=== PATIENT | male | born 1960 | race Caucasian/White ===

== ENCOUNTER 2021-12-16 14:40 | Outpatient (CLI) | payer OTHER, SELFPAY ==
--- NOTE | 2021-12-16 14:45 | MR_ITS ---
[facility] [address] [facility] [address] Phone:?[phone] Fax:?[phone] Referring Physician Information: Cheng Ernst M.D. [address] [facility] [address] [place] [id number] Phone:?[phone] Fax:?[phone] Patient:?Mateusz Bolaños D.O.B:?1960 Sex:?Male Phone:?[phone] [facility] MRN:?[id number] Exam Date:?12/16/2021 ? EXAM: MR LUMBAR SPINE WITHOUT CONTRAST 1.5T CLINICAL INFORMATION: Low back pain radiating into the left foot. History of previous surgery in 2020. TECHNICAL INFORMATION: T1, T2 and STIR sagittal sections through the lumbar spine with T1 coronal sections, T1 and T2 FSE stacked axial sections and T2 FSE angled axial sections through L5-S1. COMPARISON IMAGES: X-rays dated 12/08/2021 and a previous MRI dated 01/30/2020. INTERPRETATION:?Segmentation and Alignment: Lordotic alignment of five lumbar vertebrae with a mild lumbar curve to the left. Sacrum and Sacroiliac joints:?Normal sacrum and sacroiliac joints. L5-S1: Moderate disc degeneration with mild right facet arthropathy, moderate to marked narrowing of the subarticular recesses, and impingement on the S1 component of a conjoined left L5-S1 nerve root. Moderate bilateral foraminal stenosis with mild encroachment on the L5 component of the conjoined nerve root on sagittal image 13. L4-5: Moderate disc degeneration with a laminotomy defect on the left and mild central/subarticular recess stenosis. Mild right and moderate left foraminal stenosis with moderate left facet arthropathy. L3-4: Moderate disc degeneration with moderate bilateral facet arthropathy and moderately severe central/right subarticular recess stenosis. Neural foramina patent. L2-3: Moderate disc degeneration with mild narrowing of the central canal. Normal facet joints and patent neural foramina. L1-2 and T12-L1: Normal intervertebral disc and facet joints. No stenosis or impingement. Conus: Normal signal intensity within the conus medullaris. No intradural mass or arachnoidal adhesions. Osseous structures: Normal signal intensity within the vertebral marrow spaces. No fracture or avulsion. No osteolytic or destructive bone lesion. Paraspinous soft tissues:?No paraspinous soft tissue mass or fluid collection. CONCLUSION: 1. Moderately severe subarticular recess stenosis bilaterally at L5-S1 with impingement on the S1 component of a conjoined left L5-S1 nerve root. 2. Moderately severe central/right subarticular recess stenosis at L3-4. 3. Moderate foraminal stenosis bilaterally at L5-S1 and on the left at L4-5. 4. Facet arthropathy, moderate bilaterally at L3-4 and moderate on the left at L4-5. 5. L5-S1, L4-5, L3-4 and L2-3 disc degeneration. 6. Comparison with 01/19/2022 shows that the patient has undergone a discectomy at L4-5, degenerative changes at each of the remaining levels unchanged in the interval. Electronically signed on 12/17/2021 6:26:00 PM by Garrett Irwin M.D.
== END 2021-12-16 14:41 | disposition home or self-care (01) ==
PROVIDERS: PCP Family Medicine; Visit Provider Specialist
DX: M54.50 Low back pain, unspecified (principal); M51.26 Other intervertebral disc displacement, lumbar region; M48.061 Spinal stenosis, lumbar region without neurogenic claudication; M51.36 Other intervertebral disc degeneration, lumbar region; M51.37 Other intervertebral disc degeneration, lumbosacral region
CPT/HCPCS: 72148

== ENCOUNTER 2022-11-24 08:12 | Outpatient (CLI) | payer OTHER, SELFPAY | END 2022-11-24 08:13 | disposition home or self-care (01) | PROVIDERS: PCP Family Medicine; Visit Provider Family Medicine | DX: I10 Essential (primary) hypertension (principal); E78.5 Hyperlipidemia, unspecified; R53.1 Weakness; Z12.5 Encounter for screening for malignant neoplasm of prostate | CPT/HCPCS: 80048; 80061; 84153; 84270; 84402; 84403 ==

== ENCOUNTER 2023-12-20 09:45 | Outpatient (CLI) | payer OTHER, SELFPAY | END 2023-12-20 09:46 | disposition home or self-care (01) | PROVIDERS: PCP Family Medicine; Visit Provider Family Medicine | DX: Z00.00 Encounter for general adult medical examination without abnormal findings (principal); E78.2 Mixed hyperlipidemia; I10 Essential (primary) hypertension; R68.84 Jaw pain; Z12.5 Encounter for screening for malignant neoplasm of prostate | CPT/HCPCS: 80053; 80061; 86140; G0103 ==

== ENCOUNTER 2024-03-02 10:50 | Outpatient (CLI) | payer OTHER, SELFPAY | END 2024-03-02 10:51 | disposition home or self-care (01) | LOC: NFLDREF 03-15 04:40 | PROVIDERS: PCP Family Medicine; Referring Provider Family Medicine; Visit Provider Family Medicine | DX: R79.89 Other specified abnormal findings of blood chemistry (principal) | CPT/HCPCS: 80048 ==

== ENCOUNTER 2024-03-10 10:30 | Outpatient (CLI) | payer OTHER, SELFPAY ==
--- NOTE | 2024-03-10 11:00 | CRLHL7_ITS ---
For Patients: As a result of the Century Cures Act, medical imaging exams and procedure reports are released immediately into your electronic medical record. You may view this report before your referring provider. If you have questions, please contact your health care provider. INDICATION: Thoracic aortic ectasia TECHNIQUE: CT chest without contrast. COMPARISON: CT chest 07/10/2021 FINDINGS: The heart is normal in size. No suspicious mediastinal or axillary adenopathy. Mild bilateral gynecomastia. The heart is normal in size. The ascending thoracic aorta measures up to 4.3 cm, stable to prior exam. The descending thoracic aorta is normal in caliber. The lungs are clear without focal consolidation, pleural effusion or pneumothorax. No suspicious pulmonary mass or nodule. Upper abdomen and bones are unremarkable. IMPRESSION: Stable ectasia of the ascending thoracic aorta. Please note that all CT scans at this facility use dose modulation, iterative reconstruction, and/or weight-based dosing when appropriate to reduce radiation dose to as low as reasonably achievable. Dictated by Alejandra Rangel MD @ 03/11/2024 8:29:30 AM (Electronically Signed)
== END 2024-03-10 10:31 | disposition home or self-care (01) ==
LOC: CT 10:32
PROVIDERS: PCP Family Medicine; Visit Provider Family Medicine
DX: I77.810 Thoracic aortic ectasia (principal)
CPT/HCPCS: 71250

== ENCOUNTER 2024-12-22 08:56 | Outpatient (CLI) | payer OTHER, SELFPAY | END 2024-12-22 08:57 | disposition home or self-care (01) | LOC: NFLDREF 12-25 23:50 | PROVIDERS: PCP Family Medicine; Referring Provider Family Medicine; Visit Provider Family Medicine | DX: R45.84 Anhedonia (principal); Z13.6 Encounter for screening for cardiovascular disorders | CPT/HCPCS: 80061; 84270; 84402; 84403; 84439; 84443 ==

== ENCOUNTER 2025-01-12 07:50 | Outpatient (CLI) | payer OTHER, SELFPAY ==
--- NOTE | 2025-01-12 08:00 | CRLHL7_ITS ---
For Patients: As a result of the 21st Century Cures Act, medical imaging exams and procedure reports are released immediately into your electronic medical record. You may view this report before your referring provider. If you have questions, please contact your health care provider. INDICATION: Current sinusitis, nasal congestion. TECHNIQUE: Sinus CT was performed without the administration of intravenous contrast. COMPARISON: Sinus CT 04/20/2011 FINDINGS: Mucosal thickening/secretions in the left frontal sinus with air-fluid levels. Minimal mucosal thickening/secretions in the right frontal sinus. A small osteoma in the right frontal sinus. The left frontal recess is opacified. The right frontal recess is patent. Mucosal thickening/secretions opacifying the left anterior and middle ethmoid air cells. The left anterior ethmoidal artery is possibly exposed.. Thinning/dehiscence of the left lamina papyracea, left lateral lamella, and possibly the left aspect of the cribriform plate. There is suspected focal thinning/dehiscence of the left fovea ethmoidalis. Mucosal thickening/secretions completely opacifying the left maxillary sinus. Mild mucosal thickening/secretions in the right maxillary sinus. The left maxillary ostium, infundibulum, and hiatus semilunaris are opacified. The right ostiomeatal unit is patent. Mild mucosal thickening/secretions in the sphenoid sinuses. The sphenoethmoidal recesses are partially opacified. No optic canal or carotid canal dehiscence. The intersphenoid septum attaches posteriorly in the midline. The nasal septum is midline. Partial opacification of the left middle and superior meatus. No acute orbital pathology. The maxillary teeth show no abnormal periapical lucencies extending into the floor of the maxillary sinus. The visualized intracranial structures are grossly unremarkable. The mastoid air cells are clear. No acute or aggressive osseous lesions. The visualized soft tissues are within normal limits. IMPRESSION: 1. Acute paranasal sinusitis with a left ostiomeatal unit pattern of obstruction. 2. 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 3. The left anterior ethmoidal artery is possibly exposed. Please note that all CT scans at this facility use dose modulation, iterative reconstruction, and/or weight-based dosing when appropriate to reduce radiation dose to as low as reasonably achievable. Dictated by Obinna Mcleod MD @ 01/15/2025 8:01:27 AM (Electronically Signed)
== END 2025-01-12 07:51 | disposition home or self-care (01) ==
LOC: CT 07:50
PROVIDERS: PCP Family Medicine; Visit Provider Family Medicine
DX: R09.81 Nasal congestion (principal); J01.90 Acute sinusitis, unspecified; J34.89 Other specified disorders of nose and nasal sinuses; M95.0 Acquired deformity of nose; J32.2 Chronic ethmoidal sinusitis
CPT/HCPCS: 70486